=== PATIENT | male | born 1970 | race Caucasian/White ===

== ENCOUNTER 2018-08-21 18:35 | Emergency (ER) | payer OTHER ==
[2018-08-21 18:41] VITALS: RESP 18
--- NOTE | 2018-08-21 18:43 | ED ---
Abdominal Pain HPI - General Chief Complaint: Abdominal Pain Stated Complaint: Abd Time Seen by Provider: 08/21/18 18:42 Source: patient Mode of arrival: ambulatory Limitations: no limitations - History of Present Illness Initial Comments: 48-year-old male past history of a all status post bone marrow transplant presenting today for chief complaint of left back pain and rash. Patient states that during his last hour of work yesterday he noticed left sided back pain. He thought he maybe had been sitting in a chair too long, when he arrived at home he applied a heating pad to the area. In addition he took ibuprofen and Tylenol for pain management. In the morning patient noticed a rash along the left flank stretching towards the left side of the abdomen. He noted that this area was painful to touch. Patient denies deep abdominal pain, trauma to the back, loss of bowel bladder control, urinary retention, numbness tingling or paresthesias of the lower extremities, nausea, vomiting, diarrhea, constipation, hematochezia, melena, appetite changes. Patient states the area is painful to touch. Patient thought that he may have burned himself while using the heating pad. Patient presents today for evaluation of left-sided back and abdominal pain. Remainder of ROS negative, Patient denies any recent fever, chills, shortness of breath, chest pain, numbness or tingling, dysuria or hematuria, constipation or diarrhea, headaches or visual changes, or any other complaints. Upon arrival patient is afebrile, he is well-appearing, nontoxic. Vital signs within acceptable limits. - Related Data Home Medications Medication Instructions Recorded Confirmed Alendronate Sodium [Fosamax] 70 mg PO FR 03/13/16 08/21/18 Ergocalciferol [Vitamin D2] 50,000 unit PO TH 03/13/16 08/21/18 Ipratropium-Albuterol Nebulize 3 ml INHALATION RT-QID PRN 03/13/16 08/21/18 [Duoneb 0.5 mg-3 mg/3 ml Soln] Montelukast Sodium [Singulair] 10 mg PO DAILY 03/13/16 08/21/18 Multivitamins, Thera [Multivitamin] 1 tab PO DAILY 03/13/16 08/21/18 Sulfamethox-Tmp 800-160Mg [Bactrim 1 tab PO DAILY 03/13/16 08/21/18 DS 800-160 mg] levETIRAcetam [Keppra] 1,000 mg PO DAILY 03/13/16 08/21/18 Albuterol Inhaler [Ventolin Hfa 1 - 2 puff INHALATION RT-Q6H PRN 08/21/18 Inhaler] Fluticasone/Vilanterol [Breo 1 puff INHALATION RT-DAILY 08/21/18 08/21/18 Ellipta 100-25 Mcg Inhaler] amLODIPine [Norvasc] 10 mg PO DAILY 08/21/18 08/21/18 Previous Rx's Medication Instructions Recorded valACYclovir HCL [Valacyclovir] 1,000 mg PO Q8HR 7 Days #21 tab 08/21/18 Allergies Allergy/AdvReac Type Severity Reaction Status Date / Time Penicillins Allergy Rash/Hives Verified 08/21/18 19:20 Review of Systems ROS Statement: Those systems with pertinent positive or pertinent negative responses have been documented in the HPI. ROS Other: All systems not noted in ROS Statement are negative. Constitutional: Denies: fever, chills, night sweats Eyes: Denies: vision change Respiratory: Denies: cough, dyspnea, wheezes, hemoptysis, stridor Cardiovascular: Denies: chest pain, palpitations Endocrine: Denies: fatigue Gastrointestinal: Reports: abdominal pain (pain to touch of abdomen over skin with "rash"). Denies: nausea, vomiting, diarrhea, constipation, hematemesis, melena, hematochezia Genitourinary: Denies: urgency, dysuria, frequency, hematuria Musculoskeletal: Reports: as per HPI, back pain Skin: Reports: as per HPI, rash Neurological: Denies: headache, weakness, numbness, paresthesias, confusion, abnormal gait Past Medical History Past Medical History: Cancer, COPD, Hypertension, Seizure Disorder History of Any Multi-Drug Resistant Organisms: None Reported Additional Past Surgical History / Comment(s): bone marrow transplants Past Psychological History: No Psychological Hx Reported Smoking Status: Never smoker Past Alcohol Use History: None Reported Past Drug Use History: None Reported General Exam - General Exam Comments Initial Comments: General: The patient is awake and alert, in no distress, and does not appear acutely ill. Eye: Pupils are equal, round and reactive to light, extra-ocular movements are intact. No nystagmus. There is normal conjunctiva bilaterally. No signs of icterus. Ears, nose, mouth and throat: There are moist mucous membranes and no oral lesions. Neck: The neck is supple, there is no tenderness or JVD. Cardiovascular: There is a regular rate and rhythm. No murmur, rub or gallop is appreciated. Respiratory: Lungs are clear to auscultation, respirations are non-labored, breath sounds are equal. No wheezes, stridor, rales, or rhonchi. Gastrointestinal: No noted diaphoresis, jaundice, pallor, protecting postures or squirming. Symmetrical pigmentation of abdomen without signs of inflammation, scars, or striae. Umbilicus mildline, inverted without swelling. No dilated veins. No noted abdominal distention. No visible masses. No peristalsis, aortic pulsations , or ventral hernia. Bowel sounds audible in all 4 quadrants, unremarkable. No friction rubs or venous hums. No epigastic, hepatic or abdominal bruits. No tenderness to light or deep palpation, only tender over area of rash. Liver edge , not palpable. Spleen edge, right and left kidney not palpable. Superior bladder margin non-tender. Special Testing: Negative [place], Rovsing, McBurney, Marilu, cutaneous hyperesthesia. Iliopsoas and obturator tests negative bilaterally. Negative Heel Jar test/ tomás sign. No CVA tenderness. Digital rectal exam deferred. Negative wick turners or cullens sign Musculoskeletal: Normal ROM, no tenderness. Strength 5/5 of LE equally b/l. Sensation intact. Pulses equal bilaterally 2+. No midline tenderness to palpation of the thoracic and lumbar spine. Neurological: A&O x 3. CN II-XII intact, There are no obvious motor or sensory deficits. Coordination appears grossly intact. Speech is normal. Skin: Skin is warm and dry. Erythematous dermatitis, with grouped vesicles in areas in dermatomal pattern noted stretching from back towards abdomen. Painful to touch. Psychiatric: Cooperative, appropriate mood & affect, normal judgment. Limitations: no limitations Course Vital Signs 08/21/18 08/21/18 18:38 19:27 Temperature 97.7 F 98.2 F Pulse Rate 75 70 Respiratory 18 18 Rate Blood Pressure 137/79 132/88 O2 Sat by Pulse 99 96 Oximetry Medical Decision Making - Medical Decision Making Patient rash consistent with that of herpes zoster. Patient has been on chronic steroids and is immunocompromised. Patient be started on valacyclovir TID. Abdominal exam benign. She denied any trauma or injury to the back. Pt evaluated in person by Dr. Whelan who agreed with impression and plan. Pt will be discharged with close primary care follow-up. Patient is agreeable plan as well as discharge. Patient denies questions at this time. Return parameters discussed at length, patient verbalized understanding.pt discharged in stable condition. Disposition Clinical Impression: Herpes zoster Disposition: HOME SELF-CARE Condition: Good Instructions: Shingles (ED) Additional Instructions: Please use medication as discussed. Please follow-up with family doctor in the next 2 days. Please return to emergency room if the symptoms increase or worsen or for any other concerns, as discussed. Prescriptions: valACYclovir HCL [Valacyclovir] 1,000 mg PO Q8HR 7 Days #21 tab Is patient prescribed a controlled substance at d/c from ED?: No Referrals: Archana Ignacio DO [Primary Care Provider] - 1-2 days Time of Disposition: 19:05
[2018-08-21] MEDS ORDERED: valACYclovir HCL 1,000 MG TABLET PO STA (19:03)
[2018-08-21 19:34] VITALS: BP 132/88; PULSE 70; TEMP 98.2
== END 2018-08-21 19:27 | disposition home or self-care (01) ==
LOC: EC 18:35
DX: B02.9 Zoster without complications (principal); J44.9 Chronic obstructive pulmonary disease, unspecified; I10 Essential (primary) hypertension; G40.909 Epilepsy, unspecified, not intractable, without status epilepticus; Z88.0 Allergy status to penicillin; Z79.51 Long term (current) use of inhaled steroids; Z79.899 Other long term (current) drug therapy; Z94.81 Bone marrow transplant status
CPT/HCPCS: 99283

== ENCOUNTER 2020-09-07 10:58 | Inpatient (IN) | payer OTHER ==
--- NOTE | 2020-09-07 11:46 | ED ---
General Adult HPI - General Chief complaint: Dizziness Stated complaint: Weakness Time Seen by Provider: 09/07/20 11:00 Source: patient, RN notes reviewed, old records reviewed Mode of arrival: ambulatory - History of Present Illness Initial comments: This is a 50-year-old male who presents emergency Department with a past medical history of leukemia 25 years ago. Patient states she had a bone marrow transplant 25 years ago. Patient states he has noticed over the last 2 weeks that he has been feeling a little weaker. Patient states he also mildly short of breath per patient states as of today he got up and he was dizzy every time he stated and he thought he might be becoming anemic. Patient states he's had some dark black stools and thought maybe he was having some bleeding. Patient denies any abdominal pain. Patient denies any chest pain. Patient states he does get short of breath when he moves. Patient denies headache patient denies any numbness or focal weakness. - Related Data Home Medications Medication Instructions Recorded Confirmed Alendronate Sodium [Fosamax] 70 mg PO MO 03/13/16 11/05/19 Ergocalciferol [Vitamin D2] 50,000 unit PO TH 03/13/16 11/05/19 Montelukast Sodium [Singulair] 10 mg PO MO 03/13/16 11/05/19 Multivitamins, Thera [Multivitamin] 1 tab PO DAILY 03/13/16 11/05/19 levETIRAcetam [Keppra] 1,000 mg PO MO 03/13/16 11/05/19 Fluticasone/Vilanterol [Breo 1 puff INHALATION RT-DAILY PRN 08/21/18 11/05/19 Ellipta 100-25 Mcg Inhaler] amLODIPine [Norvasc] 10 mg PO MO 08/21/18 11/05/19 Allergies Allergy/AdvReac Type Severity Reaction Status Date / Time Penicillins Allergy Rash/Hives Verified 09/07/20 11:04 Review of Systems ROS Statement: Those systems with pertinent positive or pertinent negative responses have been documented in the HPI. ROS Other: All systems not noted in ROS Statement are negative. Past Medical History Past Medical History: Cancer, COPD, Hypertension, Seizure Disorder Additional Past Medical History / Comment(s): hx. leukemia x2 25 yrs. ago, seizure years ago-nothing current, does not take meds daily even though prescribed that way History of Any Multi-Drug Resistant Organisms: None Reported Past Surgical History: Orthopedic Surgery Additional Past Surgical History / Comment(s): bone marrow transplants, ORIF right lower leg Past Anesthesia/Blood Transfusion Reactions: No Reported Reaction Past Psychological History: No Psychological Hx Reported Smoking Status: Never smoker Past Alcohol Use History: None Reported Past Drug Use History: None Reported General Exam - General Exam Comments Initial Comments: GENERAL: Patient is well-developed and well-nourished. Patient is nontoxic and well- hydrated and is in mild distress. ENT: Neck is soft and supple. No significant lymphadenopathy is noted. Oropharynx is clear. Moist mucous membranes. Neck has full range of motion without eliciting any pain. EYES: The sclera were anicteric and conjunctiva were pink and moist. Extraocular movements were intact and pupils were equal round and reactive to light. Eyelids were unremarkable. PULMONARY: Unlabored respirations. Good breath sounds bilaterally. No audible rales rhonchi or wheezing was noted. CARDIOVASCULAR: There is a regular rate and rhythm without any murmurs gallops or rubs. ABDOMEN: Soft and nontender with normal bowel sounds. SKIN: Skin is clear with no lesions or rashes and otherwise unremarkable. NEUROLOGIC: Patient is alert and oriented x3. Cranial nerves II through XII are grossly intact. Motor and sensory are also intact. Normal speech, volume and content. Symmetrical smile. MUSCULOSKELETAL: Normal extremities with adequate strength and full range of motion. No lower extremity swelling or edema. No calf tenderness. LYMPHATICS: No significant lymphadenopathy is noted PSYCHIATRIC: Normal psychiatric evaluation. Course Vital Signs 09/07/20 09/07/20 09/07/20 11:00 11:40 12:00 Temperature 97.8 F Pulse Rate 98 84 89 Respiratory 18 18 18 Rate Blood Pressure 80/47 84/62 93/57 O2 Sat by Pulse 98 96 96 Oximetry 09/07/20 09/07/20 12:20 13:02 Temperature Pulse Rate 91 Respiratory 18 Rate Blood Pressure 102/52 110/60 O2 Sat by Pulse 100 Oximetry Medical Decision Making - Medical Decision Making EKG shows normal sinus rhythm at 85 bpm ID interval 244 QRS is 80 QT interval 370 QTC is 449. Patient's EKG shows no ST segment elevation or depression. Patient's hemoglobin was 6.4. I ordered 1 unit of packed red blood cells and gave it to the patient. I spoke with Dr. spencer he agreed to admit the patient admitted the patient wrote admitting orders. I consulted GI. I repeated CBCs every 6 hours. - Lab Data Result diagrams: 09/07/20 11:49 09/07/20 11:49 Lab Results 09/07/20 09/07/20 09/07/20 Range/Units 11:49 11:49 11:49 WBC 25.4 H (3.8-10.6) k/uL RBC 1.85 L (4.30-5.90) m/uL Hgb 6.4 L* (13.0-17.5) gm/dL Hct 18.6 L* (39.0-53.0) % MCV 100.9 H (80.0-100.0) fL MCH 34.6 (25.0-35.0) pg MCHC 34.3 (31.0-37.0) g/dL RDW 13.2 (11.5-15.5) % Plt Count 237 (150-450) k/uL MPV 7.8 Neutrophils % 90 % Lymphocytes % 7 % Monocytes % 2 % Eosinophils % 0 % Basophils % 0 % Neutrophils # 22.9 H (1.3-7.7) k/uL Lymphocytes # 1.7 (1.0-4.8) k/uL Monocytes # 0.6 (0-1.0) k/uL Eosinophils # 0.0 (0-0.7) k/uL Basophils # 0.0 (0-0.2) k/uL Manual Slide Review Performed Toxic Granulation Present Poikilocytosis (manual Present PT 9.5 (9.0-12.0) sec INR 0.9 (<1.2) APTT 21.1 L (22.0-30.0) sec Sodium (137-145) mmol/L Potassium (3.5-5.1) mmol/L Chloride (98-107) mmol/L Carbon Dioxide (22-30) mmol/L Anion Gap mmol/L BUN (9-20) mg/dL Creatinine (0.66-1.25) mg/dL Est GFR (CKD-EPI)AfAm (>60 ml/min/1.73 sqM) Est GFR (CKD-EPI)NonAf (>60 ml/min/1.73 sqM) Glucose (74-99) mg/dL Plasma Lactic Acid Pete (0.7-2.0) mmol/L Calcium (8.4-10.2) mg/dL Total Bilirubin (0.2-1.3) mg/dL AST (17-59) U/L ALT (4-49) U/L Alkaline Phosphatase (38-126) U/L Total Protein (6.3-8.2) g/dL Albumin (3.5-5.0) g/dL Stool Occult Blood Positive (Negative) 09/07/20 09/07/20 Range/Units 11:49 11:49 WBC (3.8-10.6) k/uL RBC (4.30-5.90) m/uL Hgb (13.0-17.5) gm/dL Hct (39.0-53.0) % MCV (80.0-100.0) fL MCH (25.0-35.0) pg MCHC (31.0-37.0) g/dL RDW (11.5-15.5) % Plt Count (150-450) k/uL MPV Neutrophils % % Lymphocytes % % Monocytes % % Eosinophils % % Basophils % % Neutrophils # (1.3-7.7) k/uL Lymphocytes # (1.0-4.8) k/uL Monocytes # (0-1.0) k/uL Eosinophils # (0-0.7) k/uL Basophils # (0-0.2) k/uL Manual Slide Review Toxic Granulation Poikilocytosis (manual PT (9.0-12.0) sec INR (<1.2) APTT (22.0-30.0) sec Sodium 135 L (137-145) mmol/L Potassium 4.7 (3.5-5.1) mmol/L Chloride 108 H (98-107) mmol/L Carbon Dioxide 22 (22-30) mmol/L Anion Gap 5 mmol/L BUN 75 H (9-20) mg/dL Creatinine 1.43 H (0.66-1.25) mg/dL Est GFR (CKD-EPI)AfAm 66 (>60 ml/min/1.73 sqM) Est GFR (CKD-EPI)NonAf 57 (>60 ml/min/1.73 sqM) Glucose 178 H (74-99) mg/dL Plasma Lactic Acid Pete 1.3 (0.7-2.0) mmol/L Calcium 8.3 L (8.4-10.2) mg/dL Total Bilirubin 0.3 (0.2-1.3) mg/dL AST 20 (17-59) U/L ALT 15 (4-49) U/L Alkaline Phosphatase 47 (38-126) U/L Total Protein 5.1 L (6.3-8.2) g/dL Albumin 2.6 L (3.5-5.0) g/dL Stool Occult Blood (Negative) Critical Care Time Critical Care Time: Yes Total Critical Care Time: 35 Disposition Clinical Impression: Gastrointestinal hemorrhage, Anemia Disposition: ADMITTED IP TO THIS HOSP Referrals: Archana Ignacio DO [Primary Care Provider] - 1-2 days Time of Disposition: 13:27
[2020-09-07 12:34] LABS: Albumin 2.6 g/dL (3.5-5.0); Calcium 8.3 mg/dL (8.4-10.2); Potassium 4.7 mmol/L (3.5-5.1); Total Bilirubin 0.3 mg/dL (0.2-1.3); Total Protein 5.1 g/dL (6.3-8.2)
[2020-09-07 12:40] LABS: Basophils % (A) 0 %; Eosinophils % (A) 0 %; Lymphocytes # (A) 1.7 k/uL (1.0-4.8); Lymphocytes % (A) 7 %; MCH 34.6 pg (25.0-35.0); MCHC 34.3 g/dL (31.0-37.0); MCV 100.9 fL (80.0-100.0); Mean Platelet Volume 7.8; Monocytes # (A) 0.6 k/uL (0-1.0); Monocytes % (A) 2 %; Neutrophils # (A) 22.9 k/uL (1.3-7.7); Neutrophils % (A) 90 %; Platelet Count 237 k/uL (150-450); RBC 1.85 m/uL (4.30-5.90); RDW 13.2 % (11.5-15.5); WBC 25.4 k/uL (3.8-10.6)
[2020-09-07 12:48] LABS: INR 0.9 (<1.2); Prothrombin Time 9.5 sec (9.0-12.0)
[2020-09-07 12:49] LABS: HCT 18.6 % (39.0-53.0); HGB 6.4 gm/dL (13.0-17.5)
[2020-09-07] MEDS ORDERED: SODIUM CHLORIDE 0.9% 500 ML 500 ML IV ONE (12:50)
[2020-09-07] MEDS ORDERED: SODIUM CHLORIDE 0.9% 1,000 ML IV ONE ×2 (12:50→13:30)
[2020-09-07 13:17] LABS: Poikilocytosis (M) Present; Toxic Granulation Present
[2020-09-07 13:25] LABS: Partial Thromboplastin Time 21.1 sec (22.0-30.0)
--- NOTE | 2020-09-07 14:03 | P.HPIM ---
History of Present Illness This is a pleasant 50 years old male with past medical history of leukemia about 25 years ago, history of seizure disorder, COPD and hypertension, is a patient of Dr. Ignacio. Patient presents because of feeling generally weak with dizzy spells and lightheadedness, today he was trying to get up from the toilet when he blacked out but without losing consciousness, also he was noticing very dark stool over the last 2-3 days which is unusual for him. No abdominal pain but he has nausea with no vomiting. He denies chest pain or dyspnea. No headaches or numbness or weakness. No seizure-like activity He denies smoking, alcohol or illicit drugs Labs showing low hemoglobin of 6.4, hematocrit is 18.6%. WBC is elevated at 20 5.4K. INR is normal at 0.9. Patient creatinine 1.4 however on 2014 she has 2 recorded creatinine 1.3 possible patient has CkD. occult blood in the stool is positive 1 unit of blood transfusion was ordered Also patient received 1.5 L bolus of normal saline and continued on 75 mL/h Review of Systems CONSTITUTIONAL: No fever, no malaise, no fatigue. HEENT: No recent visual problems or hearing problems. Denied any sore throat. CARDIOVASCULAR: No orthopnea, PND, no palpitations, no syncope. PULMONARY: No shortness of breath, no cough, no hemoptysis. GASTROINTESTINAL: No diarrhea, no nausea, no vomiting, no abdominal pain. Normoactive bowel sounds. NEUROLOGICAL: No headaches, no weakness, no numbness. HEMATOLOGICAL: Denies any bleeding or petechiae. GENITOURINARY: Denies any burning micturition, frequency, or urgency. MUSCULOSKELETAL/RHEUMATOLOGICAL: Denies any joint pain, swelling, or any muscle pain. ENDOCRINE: Denies any polyuria or polydipsia. Past Medical History Past Medical History: Cancer, COPD, Hypertension, Seizure Disorder Additional Past Medical History / Comment(s): hx. leukemia x2 25 yrs. ago, seizure years ago-nothing current, does not take meds daily even though prescribed that way History of Any Multi-Drug Resistant Organisms: None Reported Past Surgical History: Orthopedic Surgery Additional Past Surgical History / Comment(s): bone marrow transplants, ORIF right lower leg Past Anesthesia/Blood Transfusion Reactions: No Reported Reaction Past Psychological History: No Psychological Hx Reported Smoking Status: Never smoker Past Alcohol Use History: None Reported Past Drug Use History: None Reported Medications and Allergies Home Medications Medication Instructions Recorded Confirmed Type Alendronate Sodium [Fosamax] 70 mg PO MO 03/13/16 11/05/19 History Ergocalciferol [Vitamin D2] 50,000 unit PO TH 03/13/16 11/05/19 History Montelukast Sodium [Singulair] 10 mg PO MO 03/13/16 11/05/19 History Multivitamins, Thera [Multivitamin] 1 tab PO DAILY 03/13/16 11/05/19 History levETIRAcetam [Keppra] 1,000 mg PO MO 03/13/16 11/05/19 History Fluticasone/Vilanterol [Breo 1 puff INHALATION RT-DAILY PRN 08/21/18 11/05/19 History Ellipta 100-25 Mcg Inhaler] amLODIPine [Norvasc] 10 mg PO MO 08/21/18 11/05/19 History Allergies Allergy/AdvReac Type Severity Reaction Status Date / Time Penicillins Allergy Rash/Hives Verified 09/07/20 11:04 Physical Exam Vitals: Vital Signs Temp Pulse Resp BP Pulse Ox 09/07/20 13:02 110/60 09/07/20 12:20 91 18 102/52 100 09/07/20 12:00 89 18 93/57 96 09/07/20 11:40 84 18 84/62 96 09/07/20 11:00 97.8 F 98 18 80/47 98 Intake and Output 09/06/20 09/07/20 09/07/20 22:59 06:59 14:59 Other: Weight 68.946 kg GENERAL: The patient is alert and oriented x3, not in any acute distress. Well developed, well nourished. HEENT: Pupils are round and equally reacting to light. EOMI. No scleral icterus. No conjunctival pallor. Normocephalic, atraumatic. No pharyngeal erythema. No thyromegaly. CARDIOVASCULAR: S1 and S2 present. No murmurs, rubs, or gallops. PULMONARY: Chest is clear to auscultation, no wheezing or crackles. ABDOMEN: Soft, nontender, nondistended, normoactive bowel sounds. No palpable organomegaly. MUSCULOSKELETAL: No joint swelling or deformity. EXTREMITIES: No cyanosis, clubbing, or pedal edema. NEUROLOGICAL: Gross neurological examination did not reveal any focal deficits. SKIN: No rashes. No petechiae Results CBC & Chem 7: 09/07/20 11:49 09/07/20 11:49 Labs: Abnormal Lab Results - Last 24 Hours (Table) 09/07/20 09/07/20 09/07/20 Range/Units 11:49 11:49 11:49 WBC 25.4 H (3.8-10.6) k/uL RBC 1.85 L (4.30-5.90) m/uL Hgb 6.4 L* (13.0-17.5) gm/dL Hct 18.6 L* (39.0-53.0) % MCV 100.9 H (80.0-100.0) fL Neutrophils # 22.9 H (1.3-7.7) k/uL APTT 21.1 L (22.0-30.0) sec Sodium 135 L (137-145) mmol/L Chloride 108 H (98-107) mmol/L BUN 75 H (9-20) mg/dL Creatinine 1.43 H (0.66-1.25) mg/dL Glucose 178 H (74-99) mg/dL Calcium 8.3 L (8.4-10.2) mg/dL Total Protein 5.1 L (6.3-8.2) g/dL Albumin 2.6 L (3.5-5.0) g/dL Assessment and Plan Assessment: Acute severe anemia Rule out acute blood loss anemia and/or GI bleed Hypotension secondary to above Presyncope secondary to above acute leukocytosis, possibly related to his leukemia, versus reactive History of leukemia 25 years ago Possible CKD, stage III, versus acute kidney injury History of seizure on Trileptal Plan: This is a pleasant 50 years old male who presents with severe anemia and leukocytosis. Patient is getting 1 unit of blood transfusion. Continue with Protonix. GI consult, hematology consults. We will do anemia workup Labs and medication were reviewed.. Continue same treatment. Continue with symptomatic treatment. Resume home medication. Monitor lytes and vitals. DVT and GI prophylaxis. Further recommendations depends on the clinical course of the patient DVT prophylaxis: No anticoagulation in view of possible GI bleed GI Prophylaxis: Ppi Prognosis is guarded
[2020-09-07] MEDS: PANTOPRAZOLE 40 MG/10 ML VIAL IVP SCH ×2 (14:25→20:33)
[2020-09-07] MEDS ORDERED: ARTIFICIAL TEARS-HYPROMELLOSE DROPS 15 ML BTL BOTH EYES PRN (16:24)
[2020-09-07] MEDS ORDERED: SYMBICORT 80-4.5 MCG INHALER INHALATION PRN (16:24)
[2020-09-07] MEDS: levETIRAcetam 500 MG TAB PO SCH (17:13)
[2020-09-07 19:41] LABS: Basophils % (A) 0 %; Eosinophils % (A) 0 %; HCT 21.2 % (39.0-53.0); Lymphocytes # (A) 2.1 k/uL (1.0-4.8); Lymphocytes % (A) 10 %; MCH 31.7 pg (25.0-35.0); MCHC 31.9 g/dL (31.0-37.0); MCV 99.5 fL (80.0-100.0); Macrocytosis Slight; Mean Platelet Volume 7.9; Monocytes # (A) 0.6 k/uL (0-1.0); Monocytes % (A) 3 %; Neutrophils # (A) 17.9 k/uL (1.3-7.7); Neutrophils % (A) 86 %; Platelet Count 202 k/uL (150-450); RBC 2.13 m/uL (4.30-5.90); RDW 15.7 % (11.5-15.5); WBC 20.7 k/uL (3.8-10.6)
[2020-09-07 19:42] LABS: HGB 6.8 gm/dL (13.0-17.5)
[2020-09-07] MEDS: DEXTROSE 5%-0.9% NACL 1,000 ML IV SCH (20:33)
[2020-09-07 22:54] LABS: % Iron Saturation 71.89 (15.00-50.00); Ferritin 483.7 ng/mL (22.0-322.0); Folate, Serum 21.7 ng/mL
[2020-09-08 07:03] LABS: Anisocytosis Slight; Basophils % (A) 0 %; Eosinophils # (A) 0.1 k/uL (0-0.7); Eosinophils % (A) 0 %; HCT 21.4 % (39.0-53.0); HGB 7.2 gm/dL (13.0-17.5); Lymphocytes # (A) 2.7 k/uL (1.0-4.8); Lymphocytes % (A) 18 %; MCHC 33.6 g/dL (31.0-37.0); MCV 95.1 fL (80.0-100.0); Mean Platelet Volume 7.6; Monocytes # (A) 0.7 k/uL (0-1.0); Monocytes % (A) 5 %; Neutrophils # (A) 11.5 k/uL (1.3-7.7); Neutrophils % (A) 75 %; Platelet Count 175 k/uL (150-450); RBC 2.25 m/uL (4.30-5.90); WBC 15.3 k/uL (3.8-10.6)
[2020-09-08] MEDS: levETIRAcetam 500 MG TAB PO SCH (08:08)
[2020-09-08] MEDS: PANTOPRAZOLE 40 MG/10 ML VIAL IVP SCH ×2 (08:09→20:53)
[2020-09-08] MEDS: FERROUS SULFATE 325 MG TAB PO SCH ×2 (08:09→18:03)
[2020-09-08] MEDS ORDERED: levETIRAcetam 500 MG TAB PO SCH (09:00)
[2020-09-08 10:57] LABS: African American GFR (CKD) 80.7 (60.0-200.0); Anion Gap 2.6 mmol/L (4.00-12.00); BUN/Creat Ratio 42.5 Ratio (12.00-20.00); Calcium 7.8 mg/dL (8.7-10.3); Carbon Dioxide 23.4 mmol/L (21.6-31.8); Non-African American GFR(CKD) 69.6 (60.0-200.0); Potassium 4.1 mmol/L (3.5-5.5)
[2020-09-08 11:34] LABS: Appearance,Urine Clear (Clear); Bilirubin,Urine Negative (Negative); Blood,Urine Negative (Negative); Color,Urine Colorless; Glucose,Urine (UA) Negative (Negative); Ketones,Urine Negative (Negative); Leukocyte Esterase,Urine Negative (Negative); Nitrite,Urine Negative (Negative); Protein,Urine Negative (Negative); Specific Gravity,Urine 1.012 (1.001-1.035); Urobilinogen,Urine <2.0 mg/dL (<2.0)
--- NOTE | 2020-09-08 12:46 | XR ---
EXAMINATION TYPE: XR chest 1V portable DATE OF EXAM: 09/08/2020 Comparison: None Clinical History: 50-year-old male with cough r/o pneumonia Findings: Heart normal size. Aorta and pulmonary vasculature within normal limits. Mild interstitial prominence is unchanged. Mild biapical pleural-parenchymal scarring. No consolidation or pleural effusion. Impression: Chronic changes without acute cardiopulmonary process.
--- NOTE | 2020-09-08 12:59 | P.PN ---
Subjective This is a pleasant 50 years old male with past medical history of leukemia about 25 years ago, history of seizure disorder, COPD and hypertension, is a patient of Dr. Ignacio. Patient presents because of feeling generally weak with dizzy spells and lightheadedness, today he was trying to get up from the toilet when he blacked out but without losing consciousness, also he was noticing very dark stool over the last 2-3 days which is unusual for him. No abdominal pain but he has nausea with no vomiting. He denies chest pain or dyspnea. No headaches or numbness or weakness. No seizure-like activity He denies smoking, alcohol or illicit drugs Labs showing low hemoglobin of 6.4, hematocrit is 18.6%. WBC is elevated at 20 5.4K. INR is normal at 0.9. Patient creatinine 1.4 however on 2014 she has 2 recorded creatinine 1.3 possible patient has CkD. occult blood in the stool is positive 1 unit of blood transfusion was ordered Also patient received 1.5 L bolus of normal saline and continued on 75 mL/h 09/08/2020 Patient is more awake and stronger today, he says that his weakness is improved, he still have some dark stool but no abdominal pain or nausea vomiting, he feels hungry however he was placed on liquid diet for possible endoscopic procedure by GI team tomorrow, As per staff. Patient informed and he agrees Vital signs stable. Hemoglobin improved to 7.2 after blood transfusion. His leukocytosis improved to 15.3 K. Procalcitonin is elevated at 0.33. UA and chest x-ray are unremarkable. Possibly patient has some intra-abdominal infection. B12 is 437, and we started him on oral therapy. Troponin is negative. Liver enzymes are negative. R and level is normal with low total iron binding capacity Review of Systems CONSTITUTIONAL: No fever, no malaise, no fatigue. HEENT: No recent visual problems or hearing problems. Denied any sore throat. CARDIOVASCULAR: No orthopnea, PND, no palpitations, no syncope. PULMONARY: No shortness of breath, no cough, no hemoptysis. GASTROINTESTINAL: No diarrhea, no nausea, no vomiting, no abdominal pain. Normoactive bowel sounds. NEUROLOGICAL: No headaches, no weakness, no numbness. Active Medications Generic Name Dose Route Start Last Admin Trade Name Freq PRN Reason Stop Dose Admin Artificial Tears 1 drops 09/07/20 16:24 Artificial Tears-Hypromellose Drops 15 Ml Btl BOTH EYES TID PRN Dry Eye(s) Budesonide/Formoterol Fumarate 2 puff 09/07/20 16:24 Symbicort 80-4.5 Mcg Inhaler INHALATION RT-DAILY PRN Dyspnea Cyanocobalamin 500 mcg 09/09/20 09:00 Cyanocobalamin 500 Mcg Tab PO DAILY RODO Ferrous Sulfate 325 mg 09/08/20 07:30 09/08/20 08:09 Ferrous Sulfate 325 Mg Tab PO 325 mg BID-W/MEALS RODO Administration Dextrose/Sodium Chloride 1,000 mls @ 75 mls/hr 09/07/20 20:15 09/07/20 20:33 Dextrose 5%-Ns Iv Soln IV 75 mls/hr .[id number] RODO Administration Levetiracetam 1,000 mg 09/07/20 16:35 09/08/20 08:08 Levetiracetam 500 Mg Tab PO Not Given DAILY RODO Levofloxacin 500 mg 09/08/20 13:00 Levofloxacin 500 Mg Tab PO Q24H RODO Pantoprazole Sodium 40 mg 09/07/20 14:00 09/08/20 08:09 Pantoprazole 40 Mg/10 Ml Vial IVP 40 mg BID RODO Administration Objective - Vital Signs Vital signs: Vital Signs Temp 98.7 F 09/08/20 07:55 Pulse 90 09/08/20 07:55 Resp 16 09/08/20 07:55 BP 116/69 09/08/20 07:55 Pulse Ox 97 09/08/20 07:55 Intake & Output 09/07/20 09/08/20 09/08/20 18:59 06:59 18:59 Intake Total 310 310 Balance 310 310 Weight 68.946 kg Intake: Blood Product 310 310 As-1 Unit 310 [id number] Rc As-1 Unit 310 [id number] Other: Voiding Method Toilet Toilet # Voids 1 1 - Exam GENERAL: The patient is alert and oriented x3, not in any acute distress. Well developed, well nourished. HEENT: Pupils are round and equally reacting to light. EOMI. No scleral icterus. No conjunctival pallor. Normocephalic, atraumatic. No pharyngeal erythema. No thyromegaly. CARDIOVASCULAR: S1 and S2 present. No murmurs, rubs, or gallops. PULMONARY: Chest is clear to auscultation, no wheezing or crackles. ABDOMEN: Soft, nontender, nondistended, normoactive bowel sounds. No palpable organomegaly. MUSCULOSKELETAL: No joint swelling or deformity. EXTREMITIES: No cyanosis, clubbing, or pedal edema. NEUROLOGICAL: Gross neurological examination did not reveal any focal deficits. SKIN: No rashes. no petechiae. - Labs CBC & Chem 7: 09/08/20 06:26 09/08/20 06:26 Labs: Abnormal Lab Results - Last 24 Hours (Table) 09/07/20 09/07/20 09/07/20 Range/Units 11:49 11:49 11:49 WBC 25.4 H (3.8-10.6) k/uL RBC 1.85 L (4.30-5.90) m/uL Hgb 6.4 L* (13.0-17.5) gm/dL Hct 18.6 L* (39.0-53.0) % MCV 100.9 H (80.0-100.0) fL RDW (11.5-15.5) % Neutrophils # 22.9 H (1.3-7.7) k/uL APTT 21.1 L (22.0-30.0) sec Chloride (96-109) mmol/L Anion Gap (4.00-12.00) mmol/L BUN (9.0-27.0) mg/dL BUN/Creatinine Ratio (12.00-20.00) Ratio Calcium (8.7-10.3) mg/dL TIBC 185 L (228-460) ug/dL % Saturation 71.89 H (15.00-50.00) Ferritin 483.7 H (22.0-322.0) ng/mL Procalcitonin (0.02-0.09) ng/mL Crossmatch 09/07/20 09/07/20 09/07/20 Range/Units 11:49 11:50 18:51 WBC 20.7 H (3.8-10.6) k/uL RBC 2.13 L (4.30-5.90) m/uL Hgb 6.8 L* (13.0-17.5) gm/dL Hct 21.2 L (39.0-53.0) % MCV (80.0-100.0) fL RDW 15.7 H (11.5-15.5) % Neutrophils # 17.9 H (1.3-7.7) k/uL APTT (22.0-30.0) sec Chloride (96-109) mmol/L Anion Gap (4.00-12.00) mmol/L BUN (9.0-27.0) mg/dL BUN/Creatinine Ratio (12.00-20.00) Ratio Calcium (8.7-10.3) mg/dL TIBC (228-460) ug/dL % Saturation (15.00-50.00) Ferritin (22.0-322.0) ng/mL Procalcitonin 0.33 H (0.02-0.09) ng/mL Crossmatch See Detail 09/08/20 09/08/20 Range/Units 06:26 06:26 WBC 15.3 H (3.8-10.6) k/uL RBC 2.25 L (4.30-5.90) m/uL Hgb 7.2 L (13.0-17.5) gm/dL Hct 21.4 L (39.0-53.0) % MCV (80.0-100.0) fL RDW 16.0 H (11.5-15.5) % Neutrophils # 11.5 H (1.3-7.7) k/uL APTT (22.0-30.0) sec Chloride 117 H (96-109) mmol/L Anion Gap 2.60 L (4.00-12.00) mmol/L BUN 51.0 H (9.0-27.0) mg/dL BUN/Creatinine Ratio 42.50 H (12.00-20.00) Ratio Calcium 7.8 L (8.7-10.3) mg/dL TIBC (228-460) ug/dL % Saturation (15.00-50.00) Ferritin (22.0-322.0) ng/mL Procalcitonin (0.02-0.09) ng/mL Crossmatch Assessment and Plan Assessment: Acute severe anemia Most likely acute blood loss anemia secondary to GI bleed Hypotension secondary to above . Improved Presyncope secondary to above acute leukocytosis, could be related to intra-abdominal infection. Rule out recurrent leukemia History of leukemia 25 years ago Possible CKD, stage III, versus acute kidney injury History of seizure on Trileptal Plan: This is a pleasant 50 years old male who presents with severe anemia and leukocytosis. Patient is getting 1 unit of blood transfusion. Continue with P rotonix. GI consult, hematology consults. Saw the patient on Levaquin for possible intra-abdominal infection. Continue with IV hydration. Labs and medication were reviewed.. Continue same treatment. Continue with symptomatic treatment. Resume home medication. Monitor lytes and vitals. DVT and GI prophylaxis. Further recommendations depends on the clinical course of the patient DVT prophylaxis: No anticoagulation in view of possible GI bleed GI Prophylaxis: Ppi Prognosis is guarded
[2020-09-08] MEDS: DEXTROSE 5%-0.9% NACL 1,000 ML IV SCH (13:46)
[2020-09-08] MEDS ORDERED: LEVOFLOXACIN 500 MG TAB PO SCH ×2 (14:00→21:00)
--- NOTE | 2020-09-08 14:02 | CONS ---
CONSULTATION DATE OF SERVICE: 09/08/2020. REASON FOR CONSULTATION: Black tarry stools and anemia. HISTORY OF PRESENT ILLNESS: The patient is a 50-year-old pleasant white male with history of leukemia diagnosed about 25 years ago, history of seizure disorder, COPD, hypertension, admitted to the hospital because of black tarry stools for the last 3 days duration. He became extremely weak tired and dizzy. Came to the emergency room and was noted to have a hemoglobin of 6.4 g/dL. He received 2 units of PRBC transfusion and he is feeling much better now. He denies any abdominal pain. No recent NSAID use. No prior history of peptic ulcer disease. He did have a colonoscopy by Dr. Gilbert about 6 months ago and according to the patient he had a small polyp. PAST MEDICAL HISTORY: Significant for hypertension, seizure disorder, COPD, hyperlipidemia, history of leukemia. MEDICATIONS AT HOME: Include Fosamax, vitamin B12, Singulair, multivitamin, Keppra, Breo Ellipta, and Norvasc. ALLERGIES: PENICILLIN. SOCIAL HISTORY: No smoking, no alcohol use. FAMILY HISTORY: Unremarkable. 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 REVIEW OF SYSTEMS: CARDIOPULMONARY: No chest pain or shortness of breath. : No dysuria or hematuria. MUSCULOSKELETAL: Unremarkable. SKIN: Unremarkable. ENDOCRINE: Unremarkable. PSYCHIATRIC: Unremarkable. NEUROLOGY: Unremarkable. ENT/VISION: Unremarkable. CONSTITUTIONAL: No recent weight loss. No fever, chills, night sweats. PHYSICAL EXAMINATION: Blood pressure is 116/69, pulse rate 90, temperature 98.7. HEENT examination unremarkable. Conjunctivae pink. Sclerae anicteric. Oral cavity no lesions. NECK: No JVD, no lymph node enlargement. CHEST: Clear to auscultation. HEART: Regular rate and rhythm. ABDOMEN: Soft bowel sounds are positive. No organomegaly. EXTREMITIES: No pedal edema. SKIN: No rashes. NEURO: He is alert and oriented x3. No focal deficits. LABS: WBC 25.4, hemoglobin 6.4, platelets normal. Basic metabolic panel, BUN 75, creatinine 1.53. Today, BUN is 51, creatinine 1.12. Hemoglobin is 7.2 after 2 units of PRBC transfusion. IMPRESSION: Acute upper gastrointestinal bleed with black tarry stools for the last 3 days duration. Patient presented with severe symptomatic anemia and hemoglobin of 6.4 requiring 2 units of PRBC transfusion. No prior history of peptic ulcer disease or recent NSAID use. His biomedical parameters and clinical presentation are very consistent with acute upper GI bleed. He had a colonoscopy by Dr. Gilbert in October of 2019 which was normal. RECOMMENDATIONS: 1. Start on Protonix 40 mg every 12 hours. 2. CBC every 12 hours. 3. Start him on a clear liquid diet. 4. Proceed with an upper endoscopy tomorrow. Discussed with the patient risks, benefits and complications of the procedure and he is agreeable to it. Thank you for this consultation. MMODL / IJN: [id number] /
--- NOTE | 2020-09-08 17:56 | P.CONS ---
History of Present Illness - Reason for Consult Consult date: 09/08/20 Anemia Requesting physician: Artur E Sheet - Chief Complaint Weakness - History of Present Illness Mr. 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 He was seen by Dr. Humphries however last office visit was from 07/31/15. He has been in remission since then, however recently he has noticed dark stools and increasing weakness. In the ER he was found to have a have WBC 20, mature neutrophil predominant, and platelet 200. We were called due to history of leukemia and current leukocytosis and anemia. 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 He has been in remission since then. He has mild GVHD. He had pneumonia in and had a bronchoscopy. CBC from 06/02/2014 were unremarkable. He is current on flu and pneumonia vaccine. Last seen by Dr. Humphries on 07/31/15. Review of Systems All systems: negative Constitutional: Reports as per HPI 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 Past Anesthesia/Blood Transfusion Reactions: No Reported Reaction Additional Past Anesthesia/Blood Transfusion Reaction / Comm: Pt has received blood years ago with bone marrow transplant-no reaction. Smoking Status: Never smoker - Past Family History Father Family Medical History: CVA/TIA Additional Family Medical History / Comment(s): Father of a CVA in his 70s. Mother Family Medical History: Dementia Additional Family Medical History / Comment(s): Mother is in her 80s. Medications and Allergies Home Medications Medication Instructions Recorded Confirmed Type Alendronate Sodium [Fosamax] 70 mg PO ALONZO 03/13/16 09/07/20 History Ergocalciferol [Vitamin D2] 50,000 unit PO TH 03/13/16 09/07/20 History Multivitamins, Thera [Multivitamin] 1 tab PO DAILY 03/13/16 09/07/20 History levETIRAcetam [Keppra] 1,000 mg PO DAILY 03/13/16 09/07/20 History Fluticasone/Vilanterol [Breo 1 puff INHALATION RT-DAILY PRN 08/21/18 09/07/20 History Ellipta 100-25 Mcg Inhaler] Carboxymethylcellulose Sodium 1 drop BOTH EYES TID PRN 09/07/20 09/07/20 History [Refresh Tears] Soothe Eye Gel 1 applic BOTH EYES HS 09/07/20 09/07/20 History amLODIPine [Norvasc] 5 mg PO DAILY 09/07/20 09/07/20 History Allergies Allergy/AdvReac Type Severity Reaction Status Date / Time Penicillins Allergy Rash/Hives Verified 09/07/20 14:53 Physical Exam Vitals: Vital Signs Temp Pulse Pulse Resp BP BP Pulse Ox 09/08/20 14:00 98.2 F 91 16 119/67 97 09/08/20 07:55 98.7 F 90 16 116/69 97 09/08/20 02:20 98.4 F 99 111/67 96 09/08/20 01:09 98.2 F 94 16 105/57 98 09/07/20 22:16 98.6 F 101 H 17 127/67 99 09/07/20 21:46 98.3 F 105 H 16 107/55 100 09/07/20 21:36 98.7 F 105 H 16 98/47 100 09/07/20 19:55 97.9 F 115 H 18 96/56 98 09/07/20 18:18 97.6 F 108 H 16 108/58 99 09/07/20 16:33 98.0 F 92 99/61 09/07/20 16:03 97.6 F 97 18 104/64 96 09/07/20 15:53 97.5 F L 91 16 96/57 94 L 09/07/20 15:04 97.6 F 96 17 100/62 97 Intake and Output 09/08/20 09/08/20 09/08/20 06:59 14:59 22:59 Intake Total 310 200 Balance 310 200 Intake: Oral 200 Blood Product 310 Rc As-1 Unit 310 [id number] Other: Voiding Method Toilet # Voids 1 Due to concerns of COVID-19 detection/exposure and in an effort to limit health care provider exposure and transmission, parts of the encounter may have been obtained through chart review, family members, telephone/video visits, and/or discussion with primary team/nursing and ancillary staff. Results CBC & Chem 7: 09/08/20 06:26 09/08/20 06:26 Labs: Abnormal Lab Results - Last 24 Hours (Table) 09/07/20 09/07/20 09/07/20 Range/Units 11:49 11:49 11:50 WBC (3.8-10.6) k/uL RBC (4.30-5.90) m/uL Hgb (13.0-17.5) gm/dL Hct (39.0-53.0) % RDW (11.5-15.5) % Neutrophils # (1.3-7.7) k/uL Chloride (96-109) mmol/L Anion Gap (4.00-12.00) mmol/L BUN (9.0-27.0) mg/dL BUN/Creatinine Ratio (12.00-20.00) Ratio Calcium (8.7-10.3) mg/dL TIBC 185 L (228-460) ug/dL % Saturation 71.89 H (15.00-50.00) Ferritin 483.7 H (22.0-322.0) ng/mL Procalcitonin 0.33 H (0.02-0.09) ng/mL Crossmatch See Detail 09/07/20 09/08/20 09/08/20 Range/Units 18:51 06:26 06:26 WBC 20.7 H 15.3 H (3.8-10.6) k/uL RBC 2.13 L 2.25 L (4.30-5.90) m/uL Hgb 6.8 L* 7.2 L (13.0-17.5) gm/dL Hct 21.2 L 21.4 L (39.0-53.0) % RDW 15.7 H 16.0 H (11.5-15.5) % Neutrophils # 17.9 H 11.5 H (1.3-7.7) k/uL Chloride 117 H (96-109) mmol/L Anion Gap 2.60 L (4.00-12.00) mmol/L BUN 51.0 H (9.0-27.0) mg/dL BUN/Creatinine Ratio 42.50 H (12.00-20.00) Ratio Calcium 7.8 L (8.7-10.3) mg/dL TIBC (228-460) ug/dL % Saturation (15.00-50.00) Ferritin (22.0-322.0) ng/mL Procalcitonin (0.02-0.09) ng/mL Crossmatch Chest x-ray: report reviewed Assessment and Plan Assessment: 1. Leukocytosis 2. Anemia 3. Melena 4. History of AML in 1995 Plan: Mr. Moses is a very pleasant 50 yo male with history of AML found in 1995 s/p chemotherapy and allo SCT, in remission since then, here for melena and increasing weakness, found to have leukocytosis and anemia, Hgb 6.4, WBC 20. Differential is mature neutrophils, no left shift or blasts seen. Likely leukocytosis is reactive. He was transfused with improved Hgb to 7.2, and WBC improved to 15. Will complete anemia work up and supplement if he has vitamin/iron deficiency. No recent CBC to compare (last CBC was normal from 2014, Hgb 13). GI on board due to melena. Supportive transfusion for Hgb <7 or plt <15. Due to concerns of COVID-19 detection/exposure and in an effort to limit health care provider exposure and transmission, parts of the encounter may have been obtained through chart review, family members, telephone/video visits, and/or discussion with primary team/nursing and ancillary staff.
[2020-09-09] MEDS: DEXTROSE 5%-0.9% NACL 1,000 ML IV SCH ×2 (00:27→08:21)
[2020-09-09 06:34] LABS: Anisocytosis Slight; Basophils % (A) 0 %; Eosinophils # (A) 0.1 k/uL (0-0.7); Eosinophils % (A) 1 %; HCT 20.8 % (39.0-53.0); Lymphocytes # (A) 2.7 k/uL (1.0-4.8); Lymphocytes % (A) 20 %; MCH 32.1 pg (25.0-35.0); MCHC 33.6 g/dL (31.0-37.0); MCV 95.7 fL (80.0-100.0); Mean Platelet Volume 7.3; Monocytes # (A) 0.9 k/uL (0-1.0); Monocytes % (A) 7 %; Neutrophils # (A) 9.3 k/uL (1.3-7.7); Neutrophils % (A) 70 %; Platelet Count 222 k/uL (150-450); RBC 2.17 m/uL (4.30-5.90); WBC 13.2 k/uL (3.8-10.6)
[2020-09-09 06:43] LABS: Reticulocyte % 3.8 % (0.5-2.0)
[2020-09-09] MEDS ORDERED: PROPOFOL 10 MG/ML 20 ML VIAL IV ONE (06:55)
[2020-09-09] MEDS ORDERED: LIDOCAINE 1% INJ 10MG/ML (20 ML MDV) ONE (06:55)
[2020-09-09] MEDS ORDERED: IV FLUID CONTINUATION 1,000 ML IV ONE (07:04)
[2020-09-09] MEDS ORDERED: EPINEPHrine 10 ML SYRINGE (0.1 MG/ML) INTRAOSSEO ONE (07:14)
--- NOTE | 2020-09-09 07:22 | P.PCN ---
Date of Procedure: 09/09/20 Procedure(s) Performed: BRIEF HISTORY: Patient is a 50-year-old, pleasant, male scheduled for an upper endoscopy as a part of evaluation of acute GI bleed. He presented with multiple episodes of black tarry stools and a hemoglobin of 6.4 g/dL requiring 2 units of PRBC transfusion.. PROCEDURE PERFORMED: Esophagogastroduodenoscopy with injection epinephrine and Endo Clip placement. PREOPERATIVE DIAGNOSIS: Acute upper GI bleed. IV sedation per anesthesia. PROCEDURE: After informed consent was obtained, the patient was brought into the endoscopy unit. IV sedation was administered by Anesthesia under continuous monitoring. Initially the Olympus GIF-140 video endoscope was inserted into the mouth. Esophagus intubated without any difficulty. It was gradually advanced into the stomach and duodenum and carefully examined. The second part of the duodenum appeared normal. In the bulb of the duodenum there were 3 ulcerations identified or measuring between 1 and 1.5 cm in size one of which had a visible vessel and some oozing identified. Initially I injected 1 in 10,000, total of 5 mL and following this Endo Clip was placed. The scope at this time was withdrawn to the stomach, adequately insufflated with air, and upon careful examination, mucosa of the antrum, had scattered erosions and biopsies were done from this area. The body, cardia and the fundus appeared normal. The scope was then withdrawn into the esophagus. The GE junction was located at 39 cm from the incisors. Small hiatal hernia noted. The esophagus appeared normal. There were no erosions or ulcerations seen and the patient tolerated the procedure well. IMPRESSION: 1. 3 superficial ulcerations in the duodenal bulb measuring 1-1.5 cm in size one of which had a visible vessel with some oozing is post injection epinephrine followed by Endo Clip placement with good hemostasis. 2. Mild antral erosive gastritis and small hiatal hernia. RECOMMENDATIONS: The findings of this examination were discussed with the patient . He will be given clear liquids for breakfast and advance diet as tolerated. Continue Protonix 40 mg twice daily. Monitor CBC daily..
[2020-09-09] MEDS: FERROUS SULFATE 325 MG TAB PO SCH (08:03)
[2020-09-09] MEDS: levETIRAcetam 500 MG TAB PO SCH (08:04)
[2020-09-09] MEDS: PANTOPRAZOLE 40 MG/10 ML VIAL IVP SCH (08:04)
[2020-09-09] MEDS ORDERED: CYANOCOBALAMIN 500 MCG TAB PO SCH (09:00)
[2020-09-09 09:14] LABS: African American GFR (CKD) 114.2 (60.0-200.0); Anion Gap 5.9 mmol/L (4.00-12.00); BUN/Creat Ratio 23.33 Ratio (12.00-20.00); Calcium 7.6 mg/dL (8.7-10.3); Carbon Dioxide 27.1 mmol/L (21.6-31.8); Folate, Serum 17.6 ng/mL; Non-African American GFR(CKD) 98.5 (60.0-200.0); PSA Annual Screen 0.3 ng/mL (0.0-4.0); Potassium 4.1 mmol/L (3.5-5.5)
[2020-09-09 09:29] VITALS: BP 134/79; PULSE 89; RESP 16; TEMP 98.3
[2020-09-09 10:00] LABS: Protein, Total 4.4 g/dL (6.2-8.2)
[2020-09-09 12:26] LABS: HCT 20.7 % (39.0-53.0); HGB 7.1 gm/dL (13.0-17.5); MCH 32.3 pg (25.0-35.0); MCHC 34.5 g/dL (31.0-37.0); MCV 93.9 fL (80.0-100.0); Mean Platelet Volume 7.1; Platelet Count 226 k/uL (150-450); RDW 15.9 % (11.5-15.5); WBC 15.5 k/uL (3.8-10.6)
--- NOTE | 2020-09-09 23:41 | P.DS ---
Providers Date of admission: 09/07/20 13:30 Attending physician: Artur Gilliam MD Consults: 09/07/20 13:30 Consult Physician Urgent Consulting Provider: Thais Stoddard Consult Reason/Comments: GI bleed Do you want consulting provider notified?: Yes 09/07/20 14:01 Consult Physician Urgent Consulting Provider: Leon Cantu Consult Reason/Comments: h/o leukemia, leukocytosis and anemia Do you want consulting provider notified?: Yes Primary care physician: Archana Ignacio [facility] Course: Diagnoses: 3 duodenal ulcers, one with visible vessel with some reason status post Endo Clip placement. Acute blood loss anemia secondary to GI bleed Hypotension secondary to above . Improved Presyncope secondary to above . Improved acute leukocytosis, could be related to intra-abdominal infection. Oncologist team consulted and they think is reactive. However high pro calcitonin, patient is discharged on antibiotic History of leukemia 25 years ago Possible CKD, stage III, versus acute kidney injury History of seizure on Trileptal Hospital course: This is a pleasant 50 years old male with past medical history of leukemia about 25 years ago, history of seizure disorder, COPD and hypertension, is a patient of Dr. Ignacio. Patient presents because of feeling generally weak with dizzy spells and lightheadedness, also he was noticing very dark stool over the last 2-3 days . On the presentation his hemoglobin was low 6.4. He got 2 units of blood transfusion and his hemoglobin improved to 7.0 this morning. He underwent EGD by GI team with results showing: (3 superficial ulcerations in the duodenal bulb measuring 1-1.5 cm in size one of which had a visible vessel with some oozing is post injection epinephrine followed by Endo Clip placement with good hemostasis.) I discussed the case with Dr. Stoddard this morning with only with the results of the EGD with recommendation to repeat hemoglobin in the afternoon and if it is a stable then patient can go home today as per hwe recommendation as patient was insisting on leaving the hospital today. Repeat hemoglobin in the afternoon was 7.1. Patient remains asymptomatic since yesterday with no abdominal pain. He tolerated advance diet well. No diarrhea. He is hypotension on admission improved and his hemoglobin was stable for more than 48 hours. Blood pressure is 134/79 upon discharge and transfer vitals are stable Patient was so adamant on leaving today Stating that "staying in hospital is driving him nuts" given his history of OCD, he feels stressed out and since he cannot say in the hospital and he wants to go today. Patient is counseled to avoid NSAIDs and he agrees, also patient was consult if he develops any further bleeding or dark stool or other symptoms to call 911 on come to emergency room and he agrees. Also patient does not want to wait for the duodenal biopsy and he wants to follow up as an outpatient, risks including but not limited to cancer are explained for the patient and he agrees to follow up. He told me to make sure call Friday to make an appointment with Dr. Stoddard in 1-2 weeks for follow-up appointment Also patient was with leukocytosis, UA and chest x-ray show no signs of infection. Intra-abdominal infection is suspected with elevated troponincalcitonin, and he was prescribed Levaquin with improvement in white count cell count and symptoms and he will be discharged on short course of oral Levaquin Oncologist team were consulted due to his history of leukemia, they don't think this is related to his recurrence. However the orifice some workup last TSH and PSA were within reference range. Further workup is pending and patient does not want to wait to the hospital for follow-up with them as an outpatient, patient states that he'll call and Make appointment As stated patient on discharge was asymptomatic, he feels he is back to normal self and he does not want to wait in the hospital Patient was cleared for discharge by Dr. Stoddard from GI team and hematology team Patient is discharged on Protonix twice a day, iron pills and vitamin B12 Problems and management plan were discussed with the patient and he verbalized understanding and acceptance Patient was found stable and can be discharged home however he needs follow-up as an outpatient. Patient was instructed to follow up with PCP hailey within one week and patient agrees. Also patient was instructed to follow up with Dr. Stoddard from GI team in 1-2 weeks and he agrees and what oncologist and air brake adjuster Dr. Cantu in 1-2 weeks and he agrees to make his own appointment. Upon this could not be made for him today as it this weekend Extensive instruction is provided for the patient prior for discharge at discharge understanding and willing to comply with the recommendation and follow-up as outpatient Physical exam Gen: patient is a AAOx3, no distress CVS: S1-S2, RRR, no murmur Lungs: B/L CTA, no wheezing Abdomen: soft, no distention, no tenderness, positive bowel sounds Extremity: no leg edema or induration Time spent more than 35 minutes Plan - Discharge Summary Discharge Rx Participant: No New Discharge Prescriptions: New Ferrous Sulfate [Iron (65 MG Elemental)] 325 mg PO BID-W/MEALS #60 tab Pantoprazole Sodium [Protonix] 40 mg PO BID #60 tablet.dr Cyanocobalamin [Vitamin B-12] 500 mcg PO DAILY #30 tab Levofloxacin [Levaquin] 500 mg PO DAILY 5 Days #5 tab Continue levETIRAcetam [Keppra] 1,000 mg PO DAILY Ergocalciferol [Vitamin D2 (DRISDOL)] 50,000 unit PO TH Alendronate Sodium [Fosamax] 70 mg PO ALONZO Fluticasone/Vilanterol [Breo Ellipta 100-25 Mcg Inhaler] 1 puff INHALATION RT-DAILY PRN PRN Reason: Dyspnea Soothe Eye Gel 1 applic BOTH EYES HS amLODIPine [Norvasc] 5 mg PO DAILY Carboxymethylcellulose Sodium [Refresh Tears] 1 drop BOTH EYES TID PRN PRN Reason: Dry Eye(S) Discontinued Multivitamins, Thera [Multivitamin] 1 tab PO DAILY Discharge Medication List Alendronate Sodium [Fosamax] 70 mg PO ALONZO 03/13/16 [History] Ergocalciferol [Vitamin D2 (DRISDOL)] 50,000 unit PO TH 03/13/16 [History] levETIRAcetam [Keppra] 1,000 mg PO DAILY 03/13/16 [History] Fluticasone/Vilanterol [Breo Ellipta 100-25 Mcg Inhaler] 1 puff INHALATION RT- DAILY PRN 08/21/18 [History] Carboxymethylcellulose Sodium [Refresh Tears] 1 drop BOTH EYES TID PRN 09/07/20 [History] Soothe Eye Gel 1 applic BOTH EYES HS 09/07/20 [History] amLODIPine [Norvasc] 5 mg PO DAILY 09/07/20 [History] Cyanocobalamin [Vitamin B-12] 500 mcg PO DAILY #30 tab 09/09/20 [Rx] Ferrous Sulfate [Iron (65 MG Elemental)] 325 mg PO BID-W/MEALS #60 tab 09/09/20 [Rx] Levofloxacin [Levaquin] 500 mg PO DAILY 5 Days #5 tab 09/09/20 [Rx] Pantoprazole Sodium [Protonix] 40 mg PO BID #60 tablet. 09/09/20 [Rx] Follow up Appointment(s)/Referral(s): Leon Cantu MD [STAFF PHYSICIAN] - 1 Week (Follow-up blood workup requested by oncology team. Office close. Please call to schedule appointment) Archana Ignacio DO [Primary Care Provider] - 1-2 days (office closed. Please call Friday to schedule appointment ) Thais Stoddard MD [STAFF PHYSICIAN] - 1 Week (Follow-up stomach biopsy results with Dr. Stoddard, risks including but not limited to cancer. office closed, Please call to schedule appointment ) Patient Instructions/Handouts: Peptic Ulcer (DC), Diet for Stomach Ulcers and Gastritis (ED) Activity/Diet/Wound Care/Special Instructions: Heart healthy diet Activity is restricted until you see your doctor We recommend to Avoid NSAIDs like no Motrin, no ibuprofen, no not proceeding, no Mobic, no aspirin. It's okay to use Tylenol Follow-up stomach biopsy results with Dr. Stoddard, risks including but not limited to cancer. Discharge Disposition: HOME SELF-CARE
[2020-09-11 06:53] LABS: Free Kappa Lt Chain Qnt, Serum 2.84 mg/dL (0.33-1.94)
[2020-09-12 14:39] LABS: Albumin 2.05 g/dL (3.80-4.90); Gamma Globulin 0.64 g/dL (0.70-1.50)
== END 2020-09-09 13:44 | disposition home or self-care (01) | DRG 378 ==
LOC: EC 10:58 → 4SSUR 13:30
PROVIDERS: ADMIT Internal Medicine; ATTEND Internal Medicine
PROC: 30233N1 Transfusion of Nonautologous Red Blood Cells into Peripheral Vein, Percutaneous Approach (ICD-10-PCS; principal; 2020-09-09 07:00)
PROC: 0W3P8ZZ Control Bleeding in Gastrointestinal Tract, Via Natural or Artificial Opening Endoscopic (ICD-10-PCS; principal; 2020-09-09 07:00)
PROC: 3E0G8GC Introduction of Other Therapeutic Substance into Upper GI, Via Natural or Artificial Opening Endoscopic (ICD-10-PCS; principal; 2020-09-09 07:00)
PROC: 0DB78ZX Excision of Stomach, Pylorus, Via Natural or Artificial Opening Endoscopic, Diagnostic (ICD-10-PCS; principal; 2020-09-09 07:00)
DX: K26.4 Chronic or unspecified duodenal ulcer with hemorrhage (principal); D62 Acute posthemorrhagic anemia; D89.813 Graft-versus-host disease, unspecified; Z94.81 Bone marrow transplant status; N17.9 Acute kidney failure, unspecified; E78.5 Hyperlipidemia, unspecified; F42.9 Obsessive-compulsive disorder, unspecified; G40.909 Epilepsy, unspecified, not intractable, without status epilepticus; Z20.828 Contact with and (suspected) exposure to other viral communicable diseases; K29.60 Other gastritis without bleeding; K44.9 Diaphragmatic hernia without obstruction or gangrene; I12.9 Hypertensive chronic kidney disease with stage 1 through stage 4 chronic kidney disease, or unspecified chronic kidney disease; N18.30 Chronic kidney disease, stage 3 unspecified; J44.9 Chronic obstructive pulmonary disease, unspecified; I95.9 Hypotension, unspecified; Z82.3 Family history of stroke; Z79.899 Other long term (current) drug therapy; Z87.01 Personal history of pneumonia (recurrent); Z79.83 Long term (current) use of bisphosphonates; Z92.21 Personal history of antineoplastic chemotherapy; Z87.19 Personal history of other diseases of the digestive system; Z88.0 Allergy status to penicillin; Z98.890 Other specified postprocedural states
CPT/HCPCS: 36415; 43239; 43243; 43255; 71045; 80048; 80053; 81003; 82272; 82607; 82728; 82746; 83010; 83540; 83550; 83605; 83615; 83883; 84145; 84165; 84443; 84484; 85025; 85027; 85045; 85610; 85730; 86334; 86850; 86900; 86901; 86920; 87635; 88305; 93005; 96361; 96374; 99291

== ENCOUNTER 2024-09-21 08:34 | Day surgery (SDC) | payer OTHER ==
[2024-09-13 12:09] VITALS: BMI 25.0
[~2024-09-21 08:34] MED LIST: LACTATED RINGERS 1,000 ML IV SCH; LIDOCAINE 1% (10MG/ML) FOR IV START INTRADERMA PRN
[2024-09-21 09:29] VITALS: TEMP 98.1
[2024-09-21] MEDS: IV FLUID CONTINUATION 1,000 ML IV ONE (09:44)
[2024-09-21] MEDS ORDERED: PROPOFOL 10 MG/ML 20 ML VIAL IV ONE (10:21)
--- NOTE | 2024-09-21 10:24 | P.GSHP ---
History of Present Illness H&P Date: 09/21/24 Chief Complaint: Screening with history of colon polyps 54-year-old male here for colonoscopy her last colonoscopy 5 years ago. He had a colon polyp at that time. No family history of colon cancer. No bowel complaints. 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 Smoking Status: Never smoker - Past Family History Father Family Medical History: CVA/TIA Additional Family Medical History / Comment(s): Father of a CVA in his 70s. Mother Family Medical History: Dementia Additional Family Medical History / Comment(s): Mother is in her 80s. Medications and Allergies Home Medications Medication Instructions Recorded Confirmed Type Alendronate Sodium [Fosamax] 70 mg PO ALONZO 03/13/16 09/13/24 History Ergocalciferol [Vitamin D2 50,000 unit PO MO 03/13/16 09/13/24 History (EMOL)] levETIRAcetam [Keppra] 1,000 mg PO DAILY 03/13/16 09/21/24 History Fluticasone/Vilanterol [Breo 1 puff INHALATION RT-DAILY PRN 08/21/18 09/21/24 History Ellipta 100-25 Mcg Inhaler] Carboxymethylcellulose Sodium 1 drop BOTH EYES TID PRN 09/07/20 09/21/24 History [Refresh Tears] Soothe Eye Gel 1 applic BOTH EYES HS 09/07/20 09/21/24 History amLODIPine [Norvasc] 5 mg PO DAILY 09/07/20 09/13/24 History Cyanocobalamin [Vitamin B-12] 500 mcg PO DAILY #30 tab 09/09/20 09/13/24 Rx Ferrous Sulfate [Iron (65 MG 325 mg PO BID-W/MEALS #60 tab 09/09/20 09/13/24 Rx Elemental)] Levofloxacin [Levaquin] 500 mg PO DAILY 5 Days #5 tab 09/09/20 09/13/24 Rx Pantoprazole Sodium [Protonix] 40 mg PO BID #60 tablet.dr 09/09/20 09/21/24 Rx Allergies Allergy/AdvReac Type Severity Reaction Status Date / Time Penicillins Allergy Rash/Hives Verified 09/21/24 09:25 Surgical - Exam Vital Signs Temp Pulse Resp BP Pulse Ox 98.1 F 92 16 139/74 95 09/21/24 09:29 09/21/24 09:29 09/21/24 09:29 09/21/24 09:29 09/21/24 09:29 Physical exam: General: Well-developed, well-nourished HEENT: Normocephalic, sclerae nonicteric Abdomen: Nontender, nondistended Extremities: No edema Neuro: Alert and oriented Assessment and Plan (1) Colon cancer screening Narrative/Plan: Will proceed with colonoscopy at this time Current Visit: No Status: Acute Code(s): Z12.11 - ENCOUNTER FOR SCREENING FOR MALIGNANT NEOPLASM OF COLON SNOMED Code(s): 836885353
--- NOTE | 2024-09-21 10:42 | P.PCN ---
Date of Procedure: 09/21/24 Procedure(s) Performed: PREOPERATIVE DIAGNOSIS: Screening with personal history of colon polyps POSTOPERATIVE DIAGNOSIS: Descending colon polyp PROCEDURE: Colonoscopy with snare polypectomy ANESTHESIA: MAC SURGEON: Duarte Gilbert M.D. SPECIMENS: Polyp ENDOSCOPIC PROCEDURE: The patient was placed on the endoscopy table in the left decubitus position. The Olympus colonoscope was inserted into the anus and passed under direct visualization to the base of the cecum. The appendiceal orifice was visualized. From that point the scope was slowly withdrawn inspecting all surfaces carefully. There were no neoplastic inflammatory or polypoid lesions throughout the cecum, ascending, or transverse colon. In the descending colon a very small superficial polyp was removed using the cold snare technique. The remainder of the descending sigmoid and rectum appeared normal. There was no visible diverticulosis. Digital rectal examination was normal. The patient was taken to the recovery room in stable condition per anesthesia guidelines. RECOMMENDATIONS: Await biopsy results. Anticipate repeat colonoscopy 5 years.
[2024-09-21 11:02] VITALS: BP 121/76; PULSE 74; RESP 16
== END 2024-09-21 11:31 | disposition home or self-care (01) ==
LOC: ORWHC2ENDO 08:34
PROVIDERS: ATTEND Surgery
DX: Z12.11 Encounter for screening for malignant neoplasm of colon (principal); D12.4 Benign neoplasm of descending colon; G40.909 Epilepsy, unspecified, not intractable, without status epilepticus; I10 Essential (primary) hypertension; J44.89 Other specified chronic obstructive pulmonary disease; Z86.0100 Personal history of colon polyps, unspecified; Z88.0 Allergy status to penicillin; Z94.81 Bone marrow transplant status; Z86.73 Personal history of transient ischemic attack (TIA), and cerebral infarction without residual deficits; Z85.6 Personal history of leukemia; Z79.899 Other long term (current) drug therapy; Z79.51 Long term (current) use of inhaled steroids
CPT/HCPCS: 88305; 45385; J2704